=== PATIENT | male | born 1990 | race African-American/Black ===

== ENCOUNTER 2020-02-29 06:38 | Emergency (ER) | payer SELFPAY ==
[2020-02-29 07:33] LABS: #Eosinphils 0.1 thou/uL (0.0-0.7); #Monocytes 0.5 thou/uL (0.11-0.59); #Neutrophils 2.3 thou/uL (1.40-6.50); %Basophils 0.4 % (0.0-1.0); %Eosinophils 2.9 % (0.0-10.0); %Monocytes 12.4 % (0.0-10.0); %Neutrophils 58.3 % (42.0-75.0); Hemoglobin 11.2 g/dL (14.0-18.0); Mean Corpuscular HGB CONC 33.4 g/dL (32.0-36.0); Mean Corpuscular Hemoglobin 29.7 pg (27.0-31.0); Mean Corpuscular Volume 88.8 fL (78.0-98.0); Mean Platelet Volume 7.8 fL (7.4-10.4); Platelet Count 294 thou/uL (130-400); Red Blood Cell (RBC) Count 3.77 mill/uL (4.70-6.10)
[2020-02-29 07:40] LABS: Prothrombin Time 13.3 sec (12.0-14.7)
[2020-02-29 07:44] LABS: ALT (SGPT) Less than 7 U/L (8-55); AST (SGOT) 9 U/L (5-34); Albumin 3.5 g/dL (3.5-5.0); Alkaline Phosphatase 54 U/L (40-110); Anion Gap 9 mmol/L (10-20); BUN (Urea Nitrogen) 6 mg/dL (8.9-20.6); Bilirubin, Total Less than 0.2 mg/dL (0.2-1.2); CRP (Inflammatory) 2.22 mg/dL (= or < 0.5); Calc. Creatinine Clearance 0 mL/min (70-130); Calcium 8.7 mg/dL (7.8-10.44); Carbon Dioxide 25 mmol/L (22-29); Chloride 103 mmol/L (98-107); Estimated GFR-MDRD Greater than 90; Globulin 5.1 g/dL (2.4-3.5); Glucose 98 mg/dL (70-105); Lipase 20 U/L (8-78); Potassium 3.8 mmol/L (3.5-5.1); Protein, Total 8.6 g/dL (6.0-8.3); Sodium 133 mmol/L (136-145)
--- NOTE | 2020-02-29 08:13 | CT ---
CT of neck with contrast: 02/29/2020 HISTORY: 30-year-old HIV-positive male presents with right neck swelling FINDINGS: There is a large number of very enlarged right-sided cervical lymph nodes at levels 2, 3, 4, and 5. For example, one of the right level 2 cervical lymph nodes measures approximately 3.5 x 4 x 4.5 cm. A denoids, palatine tonsils, and lingual tonsil, are diffusely mildly enlarged. Larynx transverse dimension is mildly narrowed by the mass and right cervical lymphadenopathy, but no focal laryngeal t umor mass identified. No thyroid nodule identified. Parapharyngeal, senior cost analyst, and submandibular, and retropharyngeal, spaces, are unremarkable. IMPRESSION: 1. Massive multilevel right cervical lymphadenopathy. 2. In HIV positive individual, lymphoma is suspected. Other possibilities include metastatic right ce rvical lymphadenopathy due to occult squamous cell carcinoma. Infection is possible but less likely.
[2020-02-29] MEDS ORDERED: Iopamidol-370 76% 500 ML 1 ML ONE (13:39)
== END 2020-02-29 09:49 | disposition home or self-care (01) ==
LOC: ERS 06:38
DX: R59.0 Localized enlarged lymph nodes (principal); F17.210 Nicotine dependence, cigarettes, uncomplicated; Z21 Asymptomatic human immunodeficiency virus [HIV] infection status
CPT/HCPCS: 36415; 70491; 80053; 83690; 85025; 85610; 85652; 86140; Q9967

== ENCOUNTER 2020-03-04 07:34 | Outpatient (CLI) | payer BC, OTHER ==
[2020-03-04 16:54] LABS: Anion Gap 13 mmol/L (10-20); BUN (Urea Nitrogen) 7 mg/dL (8.9-20.6); Calc. Creatinine Clearance 0 mL/min (70-130); Carbon Dioxide 24 mmol/L (22-29); Chloride 104 mmol/L (98-107); Estimated GFR-MDRD Greater than 90; Glucose 87 mg/dL (70-105); Potassium 4.5 mmol/L (3.5-5.1); Sodium 136 mmol/L (136-145)
[2020-03-04 17:07] LABS: Band 4 % (5-11); Eosinophils 2 % (0-10); Hemoglobin 12.2 g/dL (14.0-18.0); Lymphocytes 26 % (21-51); MDiff Complete? YES; Mean Corpuscular HGB CONC 32.6 g/dL (32.0-36.0); Mean Platelet Volume 8.5 fL (7.4-10.4); Monocytes 16 % (0-10); Neutrophil 51 % (42-75); Platelet Count 288 thou/uL (130-400); Platelet Morphology Comment Appears Adequate; RBC Distribution Width 13.3 % (11.5-14.5); RBC Morphology Normal; Red Blood Cell (RBC) Count 4.21 mill/uL (4.70-6.10); White Blood Cell (WBC) Count 3.6 thou/uL (4.8-10.8)
[2020-03-05 13:13] LABS: SARS-CoV-2 MS2 Positive; SARS-CoV-2 N Gene Negative; SARS-CoV-2 S Gene Negative; SARS-CoV-2 orf1ab Negative
== END 2020-03-04 07:35 | disposition home or self-care (01) ==
LOC: LABBT 07:34
PROVIDERS: ATTEND Specialist
DX: Z01.812 Encounter for preprocedural laboratory examination (principal); Z11.59 Encounter for screening for other viral diseases; R59.0 Localized enlarged lymph nodes
CPT/HCPCS: 80048; 85025; 87635; U0003

== ENCOUNTER 2020-03-08 08:06 | Day surgery (SDC) | payer BC ==
[2020-03-03 10:54] VITALS: BMI 29.3
[2020-03-08] MEDS ORDERED: Acetaminophen 500 MG TAB ONE (08:46)
[2020-03-08] MEDS ORDERED: Ketorolac Tromethamine 30 MG/ML VIAL ONE (08:46)
[2020-03-08] MEDS ORDERED: Midazolam HCl 2 mg/2 ml Vial ONE (09:30)
[2020-03-08] MEDS ORDERED: Fentanyl 100 MCG/2 ML VIAL ONE (09:39)
[2020-03-08] MEDS ORDERED: Lidocaine 1% w/Epinephrine 1:100K 20 ML VIAL ONE (09:41)
[2020-03-08] MEDS ORDERED: Sodium Bicarbonate 2.5 MEQ/5 ML VIAL ONE (09:41)
[2020-03-08] MEDS ORDERED: Bupivacaine 0.25% HCL 30 ML VIAL ONE (09:41)
[2020-03-08] MEDS ORDERED: HYDROcodone/Acetaminophen 5/325 mg Tablet ONE (12:02)
[2020-03-08] MEDS ORDERED: Lidocaine 1% PF 5 ML VIAL ONE (14:26)
[2020-03-08] MEDS ORDERED: Ondansetron PF 4 MG/2 ML Vial ONE (14:26)
[2020-03-08] MEDS ORDERED: Dexamethasone 20 MG/5 ML VIAL ONE (14:26)
[2020-03-08] MEDS ORDERED: Glycopyrrolate 0.2 MG/ML 5 ML SYRINGE ONE (14:26)
[2020-03-08] MEDS ORDERED: PROPOFOL 200 MG/20 ML VIAL ONE (14:26)
[2020-03-08] MEDS ORDERED: Rocuronium Bromide 10 MG/ML (10ML VIAL) ONE (14:26)
--- NOTE | 2020-03-10 20:05 | OP ---
DATE OF PROCEDURE: 03/08/2020 PREOPERATIVE DIAGNOSIS: Extensive right anterior cervical lymphadenopathy. POSTOPERATIVE DIAGNOSIS: Extensive right anterior cervical lymphadenopathy. PROCEDURE PERFORMED: Right cervical deep lymph node excisional biopsy. ANESTHESIA: General endotracheal. INDICATIONS: The patient is a 30-year-old black male. He had presented recently with significant right neck swelling. Imaging studies show extensive right cervical lymphadenopathy. Interestingly, I cannot find any significant lymphadenopathy elsewhere. His oncologist has requested an excisional biopsy of one of these lymph nodes. DESCRIPTION OF OPERATION: Informed consent was obtained, the patient was taken to the operating room, where general endotracheal anesthesia was obtained with the patient in supine position. Neck was distracted and turned to the left. Neck was trimmed of hair and prepped with ChloraPrep and draped in sterile fashion. Local anesthetic was infiltrated along the intended incision line. Ultrasound was utilized to identify an appropriate lymph node. An oblique incision was created along the anterior border of the sternocleidomastoid. Dissection was carried through skin and subcutaneous tissue, and platysma in-line with the incision. Dissection was then carried down to the sternocleidomastoid and then along the anterior aspect of the SCM was reflected posteriorly. Dissection was carried medially down onto an obviously enlarged lymph node. Careful dissection was carried out along this in order to avoid peripheral injury. The overlying fascial structures were divided using electrocautery's were encountered to unroof the lymph node. A meticulous circumferential dissection was carried out. As each possible lymphatic was identified, it was divided using hemoclips. As the lymph node was mobilized, there was noted to be other markedly enlarged abnormal lymph nodes within the wound bed and the lymph node that was being dissected was carefully dissected away from these other lymph nodes. The operation was performed with essentially no blood loss. The lymph node was removed intact and passed off the field. It was quite large and was approximately 5 cm in length. The wound was inspected for meticulous hemostasis, which had been achieved. It was irrigated and then closed in layers using 3-0 Monocryl to approximate the sternocleidomastoid anteriorly and then a running suture of 3-0 Monocryl in order to close the platysma. Additional local anesthetic was infiltrated during closure. The skin edges were then approximated with a running subcuticular suture of 4-0 Monocryl and Dermabond was placed externally. There were no complications. The patient tolerated the procedure well and was taken to recovery room in stable condition. Job ID: [id number]
== END 2020-03-08 13:08 | disposition home or self-care (01) ==
LOC: SDC 08:06
PROVIDERS: ATTEND Specialist
PROC: 07D13ZX Extraction of Right Neck Lymphatic, Percutaneous Approach, Diagnostic (ICD-10-PCS; principal; 2020-03-08)
DX: C81.11 Nodular sclerosis Hodgkin lymphoma, lymph nodes of head, face, and neck (principal); F17.200 Nicotine dependence, unspecified, uncomplicated; F41.9 Anxiety disorder, unspecified
CPT/HCPCS: 88184; 88307; J0690; J1100; J1885; J2001; J2250; J2405; J2704; J3010; S0020

== ENCOUNTER 2020-05-31 18:57 | Inpatient (IN) | payer BC, OTHER ==
[~2020-05-31 18:57] MED LIST: Iopamidol-370 76% 500 ML 1 ML ONE
[2020-05-31] MEDS ORDERED: Aspirin 325 MG TAB ONE (19:41)
--- NOTE | 2020-05-31 19:52 | RAD ---
PORTABLE CHEST: 05/31/20 PROVIDED CLINICAL HISTORY: Chest pain and fever. FINDINGS: The cardiac and mediastinal silhouette is within normal limits. No focal consolidation, pleural fluid , or pneumothorax apparent. IMPRESSION: No evidence for an acute cardiopulmonary process. POS: HUAN
[2020-05-31 19:59] LABS: Hemoglobin 12.1 g/dL (14.0-18.0); Mean Corpuscular HGB CONC 33.6 g/dL (32.0-36.0); Mean Corpuscular Hemoglobin 29.1 pg (27.0-31.0); Mean Corpuscular Volume 86.5 fL (78.0-98.0); Mean Platelet Volume 8.5 fL (7.4-10.4); Platelet Count 219 thou/uL (130-400); RBC Distribution Width 14.9 % (11.5-14.5); Red Blood Cell (RBC) Count 4.16 mill/uL (4.70-6.10); White Blood Cell (WBC) Count 4.5 thou/uL (4.8-10.8)
[2020-05-31 20:16] LABS: Band 4 % (5-11); Eosinophils 2 % (0-10); Lymphocytes 22 % (21-51); MDiff Complete? YES; Monocytes 15 % (0-10); Neutrophil 57 % (42-75); Platelet Morphology Comment Appears Adequate; RBC Morphology Normal
[2020-05-31 20:16] LABS: ALT (SGPT) 8 U/L (8-55); AST (SGOT) 13 U/L (5-34); Albumin 3.7 g/dL (3.5-5.0); Alkaline Phosphatase 62 U/L (40-110); Anion Gap 15 mmol/L (10-20); BUN (Urea Nitrogen) 6 mg/dL (8.9-20.6); Bilirubin, Total 0.4 mg/dL (0.2-1.2); Calc. Creatinine Clearance 0 mL/min (70-130); Calcium 8.9 mg/dL (7.8-10.44); Carbon Dioxide 22 mmol/L (22-29); Chloride 100 mmol/L (98-107); Estimated GFR-MDRD Greater than 90; Globulin 5.4 g/dL (2.4-3.5); Glucose 94 mg/dL (70-105); Lipase 9 U/L (8-78); Potassium 3.7 mmol/L (3.5-5.1); Protein, Total 9.1 g/dL (6.0-8.3); Sodium 133 mmol/L (136-145)
[2020-05-31] MEDS ORDERED: cefTRIAXone\\ROCEPHIN 2 GM VIAL ONE (21:06)
[2020-05-31] MEDS ORDERED: Sulfameth/Trimethoprim DS 800-160mg TAB ONE (21:06)
--- NOTE | 2020-05-31 21:44 | CT ---
CT PULMONARY ANIOGRAM WITH IV CONTRAST AND 3D MIP RECONSTRUCTIONS: 05/31/20 PROVIDED CLINICAL HISTORY: Chest pain, HIV positive, history of lymphoma. FINDINGS: No comparisons. The heart, pericardium and great vessels appear unremarkable. There is no evidence for central or seg mental pulmonary embolus. Prominent axillary, hilar, and mediastinal lymph node enlargement is demonstrated. The lungs are free of significant opacity. The airway appears patent and of normal caliber. There is no pleural fluid or pneumothorax apparent. The visualized portions of the upper abdomen demonstrate no significant abnormality. Changes of prior cholecystectomy are seen. The osseous structures demonstrate no concerning lytic or blastic lesions. IMPRESSION: 1. No evidence for central or segmental pulmonary embolus. 2. Axillary, mediastinal and hilar lymph node enlargement, compatible with the provided clinical history of lymphoma. POS: HUAN
[2020-05-31] MEDS ORDERED: Azithromycin 500 MG VIAL ONE (21:52)
[2020-05-31] MEDS ORDERED: Ondansetron PF 4 MG/2 ML Vial ONE (22:23)
[2020-05-31 22:30] LABS: SARS-CoV-2 NAA Rapid Test Not Detected (NotDetected)
[2020-06-01 00:47] LABS: Troponin I Less than 0.010 ng/mL (< 0.028)
[2020-06-01] MEDS ORDERED: Promethazine HCl 12.5 MG in Sodium Chloride 0.9% 50 ML IVPB PRN (00:59)
[2020-06-01] MEDS ORDERED: Labetalol HCl 100 MG/20 ML VIAL SLOW IVP PRN (00:59)
[2020-06-01] MEDS ORDERED: Acetaminophen 325 MG TAB PO PRN (00:59)
[2020-06-01] MEDS ORDERED: hydrALAZINE 20 MG/ML VIAL SLOW IVP PRN (00:59)
[2020-06-01] MEDS ORDERED: Ondansetron PF 4 MG/2 ML Vial IVP PRN (00:59)
[2020-06-01] MEDS ORDERED: Guaifenesin DM 100-10/5 ML UDCUP PO PRN (00:59)
[2020-06-01] MEDS ORDERED: cloNIDine 0.1 MG TAB PO PRN (00:59)
[2020-06-01] MEDS ORDERED: Electrolyte Replacement Protoc 1 EACH EACH FS SCH (01:00)
--- NOTE | 2020-06-01 01:13 | PDOC.HHP ---
Hospitalist HPI - History of Present Illness Fever, chest pain History of Present Illness: Patient is a 30 year old male with PMH HIV, hodgkins lymphoma who presents to ED for chest pain, fatigue, malaise, fever. 3 days ago patient developed lost energy, chest pain with inspiration that is relieved by laying on side and laying down, 8/10 aching and pressure like.. He also had a fever as high as 102.6. He reports chills. He has history of HIV, been off of medications for the last 5 years, also has nonhodgkins lymphoma, has had basically no followup due to lapse of funding, does not see ID or oncology provider. Other symptoms include cough, the chest pain is substernal radiating to back, his partner r ecently had a fever as well. In ED, CXR unremarkable, covid test negative. CTA chest with findings of lymphadenopathy consistent with history of lymphoma, no PE. Hospitalist ROS - Review of Systems Constitutional: reports: fever, chills, sweats, weakness, malaise Eyes: denies: pain, vision change, conjunctivae inflammation, eyelid inflammation, redness, other ENT: denies: ear pain, ear discharge, nose pain, nose discharge, nose congestion, mouth pain, mouth swelling, throat pain, throat swelling, other Respiratory: reports: cough, pleuritic pain Cardiovascular: reports: chest pain. denies: palpitations, orthopnea, paroxysmal noc. dyspnea, edema, light headedness, other Gastrointestinal: denies: nausea, vomiting, abdominal pain, diarrhea, constipation, melena, hematochezia, other Genitourinary: denies: dysuria, frequency, incontinence, hematuria, retention, other Musculoskeletal: denies: neck pain, shoulder pain, arm pain, back pain, hand pain, leg pain, foot pain, other Skin: denies: rash, lesions, ludivina, bruising, other Neurological: denies: weakness, numbness, incoordination, change in speech, confusion, seizures, other All other systems reviewed; all pertinent +/- noted in HPI/Subj - Medication Medications: noncompliant Hospitalist History - Past Medical History Other Medical History: HIV hodgkins lymphoma - Past Surgical History Past Surgical History: reports: Cholecystectomy - Family History Family History: reports: no pertinent history - Social History Smoking Status: Current every day smoker Drugs: reports: marijuana - Exam General Appearance: NAD, awake alert Eye: PERRL, anicteric sclera ENT: normocephalic atraumatic, no oropharyngeal lesions, moist mucosa Neck: supple, symmetric, no JVD, no thyromegaly, no lymphadenopathy, no carotid bruit Heart: RRR, no murmur, no gallops, no rubs, normal peripheral pulses Respiratory: CTAB, no wheezes, no rales, no ronchi, normal chest expansion, no tachypnea, normal percussion Gastrointestinal: soft, non-tender, non-distended, normal bowel sounds, no palpable masses, no hepatomegaly, no splenomegaly, no bruit Extremities: no cyanosis, no clubbing, no edema Skin: normal turgor, no lesions, no rashes Neurological: cranial nerve grossly intact, normal sensation to touch, no weakness, no focal deficits, no new deficit Musculoskeletal: normal tone, normal strength, no muscle wasting Psychiatric: normal affect, normal behavior, A&O x 3 Hospitalist Results - Labs Result Diagrams: 06/01/20 03:13 06/01/20 03:13 Lab results: WBC 4.5 thou/uL (4.8-10.8) L 05/31/20 19:48 Hgb 12.1 g/dL (14.0-18.0) L 05/31/20 19:48 Hct 36.0 % (42.0-52.0) L 05/31/20 19:48 MCV 86.5 fL (78.0-98.0) 05/31/20 19:48 Plt Count 219 thou/uL (130-400) 05/31/20 19:48 Band Neuts % (Manual) 4 % (5-11) L 05/31/20 19:48 Sodium 133 mmol/L (136-145) L 05/31/20 19:49 Potassium 3.7 mmol/L (3.5-5.1) 05/31/20 19:49 Chloride 100 mmol/L (98-107) 05/31/20 19:49 Carbon Dioxide 22 mmol/L (22-29) 05/31/20 19:49 BUN 6 mg/dL (8.9-20.6) L 05/31/20 19:49 Creatinine 0.76 mg/dL (0.7-1.3) 05/31/20 19:49 Glucose 94 mg/dL (70-105) 05/31/20 19:49 Lactic Acid 0.8 mmol/L (0.5-2.2) 05/31/20 22:10 Calcium 8.9 mg/dL (7.8-10.44) 05/31/20 19:49 Total Bilirubin 0.4 mg/dL (0.2-1.2) 05/31/20 19:49 AST 13 U/L (5-34) 05/31/20 19:49 ALT 8 U/L (8-55) 05/31/20 19:49 Alkaline Phosphatase 62 U/L (40-110) 05/31/20 19:49 Troponin I Less than 0.010 ng/mL (< 0.028) 06/01/20 00:16 Serum Total Protein 9.1 g/dL (6.0-8.3) H 05/31/20 19:49 Albumin 3.7 g/dL (3.5-5.0) 05/31/20 19:49 Lipase 9 U/L (8-78) 05/31/20 19:49 Additional comment: VITAL SIGNS SatJun 01, 2020 00:09 AROLDO Moreno Julia BP: 112/72 Pulse: 92 Resp: 18 Temp: 99.0 (Oral) Pain: 4 O2 sat: 97 on (Room Air) Time: 06/01/2020 00:09. XR Chest 1 View Portable Observe DT: SatMay 31, 2020 19:10 CXRP PORTABLE CHEST: 05/31/20 PROVIDED CLINICAL HISTORY: Chest pain and fever. FINDINGS: The cardiac and mediastinal silhouette is within normal limits. No focal consolidation, pleural fluid , or pneumothorax apparent. IMPRESSION: No evidence for an acute cardiopulmonary process. Ed labs/imaging reports/ED documents reviewed. - EKG Interpretation EKG: per ED read, EKG without evidence for ischemia Hospitalist H&P A/P - Plan Plan: Patient is a 30 year old male with PMH HIV, hodgkins lymphoma who presents to ED for chest pain, fatigue, malaise, fever. # HIV infection - off of medications for 5 years # fever, chest pain - positional, 3 days ago patient developed lost energy, chest pain with inspiration that is relieved by laying on side and laying down, 8/10 aching and pressure like. He also had a fever as high as 102.6. He reports chills. He has history of HIV, been off of medications for the last 5 years, also has nonhodgkins lymphoma, has had basically no followup due to lapse of funding, does not see ID or oncology provider. Other symptoms include cough, the chest pain is substernal radiating to back, his partner recently had a fever as well. In ED, CXR unremarkable, covid test negative. CTA chest with findings of lymphadenopathy consistent with history of lymphoma, no PE. \ - admit to floor - consult oncology/ID - send for viral load/CD4 - start azithromycin/ceftriaxone - PCP treatment dose bactrim started empirically DVT/GI ppx
[2020-06-01 01:19] VITALS: BMI 29.7
[2020-06-01 03:56] LABS: Anion Gap 12 mmol/L (10-20); BUN (Urea Nitrogen) 7 mg/dL (8.9-20.6); Calc. Creatinine Clearance 193 mL/min (70-130); Calcium 8.5 mg/dL (7.8-10.44); Carbon Dioxide 23 mmol/L (22-29); Chloride 102 mmol/L (98-107); Estimated GFR-MDRD Greater than 90; Glucose 111 mg/dL (70-105); Magnesium 1.9 mg/dL (1.6-2.6); Potassium 3.9 mmol/L (3.5-5.1); Sodium 133 mmol/L (136-145)
[2020-06-01 04:00] LABS: Troponin I Less than 0.010 ng/mL (< 0.028)
[2020-06-01] MEDS ORDERED: Magnesium 2 GM/50 ML 2 GM in Premix Bag 1 BAG IVPB SCH (04:30)
[2020-06-01 05:05] LABS: Band 6 % (5-11); Hemoglobin 10.6 g/dL (14.0-18.0); Hypochromia SLIGHT = 6-15 cells (100X) (0-5/hpf); Lymphocytes 19 % (21-51); MDiff Complete? YES; Mean Corpuscular HGB CONC 31.7 g/dL (32.0-36.0); Mean Corpuscular Hemoglobin 27.5 pg (27.0-31.0); Mean Corpuscular Volume 86.8 fL (78.0-98.0); Mean Platelet Volume 8.7 fL (7.4-10.4); Monocytes 22 % (0-10); Neutrophil 53 % (42-75); Platelet Count 217 thou/uL (130-400); Platelet Morphology Comment Appears Adequate; RBC Distribution Width 14.8 % (11.5-14.5); Red Blood Cell (RBC) Count 3.85 mill/uL (4.70-6.10); White Blood Cell (WBC) Count 3.9 thou/uL (4.8-10.8)
[2020-06-01] MEDS ORDERED: Prevnar 13-Val Conj/PF 0.5 ML SYRINGE IM ONE (09:00)
[2020-06-01] MEDS: Sulfameth/Trimethoprim DS 800-160mg TAB PO SCH ×3 (09:07→20:00)
[2020-06-01] MEDS: Polyethylene Glycol 3350 17 GM Packet PO SCH (09:07)
[2020-06-01] MEDS: Famotidine 20 MG TAB PO SCH ×2 (09:07→20:00)
[2020-06-01] MEDS: HYDROcodone/Acetaminophen 5/325 mg Tablet PO PRN ×2 (09:16→16:29)
--- NOTE | 2020-06-01 19:08 | CON ---
DATE OF CONSULTATION: 06/01/2020 REASON FOR CONSULT: HIV infection with Hodgkin's lymphoma. HISTORY OF PRESENT ILLNESS: A 30-year-old who has HIV seropositive status since 2009. He was not treated until 2014. According to him, his doctor decided against treatment and then in , he was prescribed Stribild. Apparently after two months, the doctor decided to stop it, but apparently was not working and he was not given any alternate. She has moved over to the area and was diagnosed with Hodgkin lymphoma recently. Dr. Omalley was evaluating patient for treatment and some issues with insurance and at this time, he comes through the emergency room because of anterior chest pain radiating to the left side of the chest, associated with fever of 102. No headaches, visual symptoms, sore throat, odynophagia, or dysphagia. No cough. Apparently, his partner had a fever recently, but this has improved. No abdominal pain or diarrhea. No genitourinary symptoms. No joint symptoms. PAST MEDICAL HISTORY: HIV infection, CD4 cell count was above 500 and the latest one in March I believe was 426, is not on treatment since 2014. He also has Hodgkin's disease diagnosed recently, not yet treated. PAST SURGICAL HISTORY: Includes laparoscopic cholecystectomy and lymph node biopsy. SOCIAL HISTORY: He uses marijuana intermittently. Smokes two cigarettes daily. Drinks occasionally. He used to work for a company, but was laid off. ALLERGIES: NONE. CURRENT MEDICATIONS: 1. DuoNeb. 2. Azithromycin. 3. Rocephin. 4. Lovenox. 5. Robitussin. 6. Zofran. 7. MiraLAX. 8. Bactrim. FAMILY HISTORY: Noncontributory. PHYSICAL EXAMINATION: VITAL SIGNS: T-max 99, BP 113/58, temperature 98.5, heart rate 83, respiratory rate 16, and O2 saturation 97. SKIN: Within normal limits. NECK: Patient has a large right-sided neck lymphadenopathy, which corresponds to his Hodgkin's disease. Neck is supple. HEENT: Ocular movements conjugate. Oral cavity normal. Teeth in good shape. LUNGS: Symmetric. Clear breath sounds. HEART: S1 and S2. Regular rate. No S3 or S4. ABDOMEN: Soft, nondistended, and nontender. No ascites. No bladder distention. : No genital abnormalities. EXTREMITIES: No joint inflammatory activity. Moves extremities equally. LABORATORY: White cell count 4.5 and 3.9, hemoglobin 12.1, platelets 217 with a normal differential. Monocytes are 22%. Total lymphocyte count is around 800. LDH 236. Albumin 3.7. Liver profile normal. Creatinine 0.76. COVID was negative in February and negative now in May. There is a pathology report from February with nodular sclerosis, classical Hodgkin's lymphoma. IMAGING: Chest CTA with no pulmonary embolism, axillary mediastinal hilar lymph node enlargement, and soft tissue neck CT from February with massive right cervical lymphadenopathy. ASSESSMENT: Human immunodeficiency virus infection with short-lived treatment with anti-retroviral therapy in 2014, presumably due to virologic failure, but that is not clear. He currently has a CD4 last checked in March, which was 436, and he is admitted with chest pain, which is probably secondary to the lymphoma I would say is the more likely scenario. I think he does not need any antimicrobial therapy at this point in time. Troponins are wnl. The lymphoma is the more likely reason for the fever. We will go ahead and submit the genotype in preparation for resumption of antiretroviral therapy in the outpatient setting. When the patient gets out of the hospital, we will see him in the clinic and establish treatment which is important since he may be receiving chemotherapy shortly. Job ID: [id number] MTDD
--- NOTE | 2020-06-01 19:41 | CON ---
DATE OF CONSULTATION: REASON FOR CONSULTATION: Hodgkin lymphoma. HISTORY OF PRESENT ILLNESS: Mr. Pepper is a 30-year-old gentleman, who is HIV positive, who was diagnosed with nodular sclerosis, classical Hodgkin lymphoma in February of 2020. He presented with a 7 to 8 cm right-sided mass at that time. He underwent a right cervical lymph node biopsy, which confirmed Hodgkin lymphoma. He had MediPort placed. He was to have further imaging studies and wish to follow up with Dr. Lopez as he had not had any treatment for his HIV since 2014. He unfortunately lost his insurance and did not follow up with us. He was last seen on March 10, 2020. He presented to the emergency room yesterday with 3-day history of fever, chest pain, and general malaise. Temperature was as high as 102.6. He underwent a CT angio of the chest, which showed no evidence of pulmonary emboli except emboli. It did show axillary mediastinal and hilar lymph node enlargement compatible with his history of lymphoma. On exam, the patient has a large 10+ cm right neck mass. He has supraclavicular lymphadenopathy. He admits to having night sweats and general malaise. Denies any chest pain at this time. PAST MEDICAL HISTORY: 1. HIV positive, 2009. 2. Hodgkin lymphoma diagnosed in February 2020. PAST SURGICAL HISTORY: 1. Eye surgery in 1993. 2. Cholecystectomy in 2018. ALLERGIES: NO KNOWN DRUG ALLERGIES. HOME MEDICATIONS: None. FAMILY HISTORY: Father had lung cancer. SOCIAL HISTORY: Lives with his significant other. Current everyday smoker. History of marijuana use. No alcohol. REVIEW OF SYSTEMS: A 10-point review of systems is negative except for noted in HPI. PHYSICAL EXAMINATION: VITAL SIGNS: Temperature is 98.5, pulse is 83, respiratory rate is 16, blood pressure is 113/58. He is 97% on room air. GENERAL: Well-developed, well-nourished male, in no acute distress. HEENT: Normocephalic, atraumatic. Pupils are equal and reactive to light. NECK: He has large conglomerate of right cervical lymph nodes approximately 10 to 12 cm. He has supraclavicular lymphadenopathy. LUNGS: Clear to auscultation. CV: Regular rate and rhythm. ABDOMEN: Soft and nontender. Bowel sounds are positive. EXTREMITIES: There is no clubbing or cyanosis. SKIN: No rash. HEMATOLOGICAL: No petechiae or purpura. NEUROLOGICAL: Nonfocal. PERTINENT LABORATORY DATA AND X-RAYS: Current WBCs are 3.9, hemoglobin 10.6, hematocrit 33.5, platelet count 217,050 3% neutrophils, 6% bands, 19% lymphocytes, and 22% monocytes. Sodium is 133, potassium 3.9, chloride 102, CO2 is 23, BUN is 7, creatinine 0.78, lactic acid 0.8, calcium 8.5, magnesium 1.9, bilirubin 0.4, AST is 13, ALT is 8, alkaline phosphatase is 62. Serum total protein is 9.1, albumin 3.7, globulin 5.4, lipase 9, LDH is 236. Troponin negative. COVID-19 PCR negative. Radiology per history of present illness. ASSESSMENT: 1. Classical Hodgkin lymphoma. 2. HIV positive. DISCUSSION: The patient unfortunately did not follow up for treatment of his HIV nor of his Hodgkin lymphoma. He now has B type symptoms including fever and night sweats. Dr. Lopez has been consulted and has seen the patient and is running his blood test to resume medication. The patient requires his HIV to be controlled prior to starting chemotherapy. He will need an outpatient PET scan as well as a transesophageal echo. Needs to see a financial counselor see the patient for financial assistance. He will follow up in the clinic to see Dr. Omalley. Thank you for the consult. Job ID: [id number] MTDD
[2020-06-01 20:25] LABS: Troponin I Less than 0.010 ng/mL (< 0.028)
[2020-06-01] MEDS ORDERED: Azithromycin 500 MG in Syringe 0 ML IVPB SCH (21:00)
[2020-06-01] MEDS ORDERED: Enoxaparin Sodium 40 MG/0.4 ML SYRINGE SC SCH (21:00)
[2020-06-01] MEDS ORDERED: cefTRIAXone\\ROCEPHIN 1 GM in Sodium Chloride 0.9% 100 ML IVPB SCH (21:00)
[2020-06-01] MEDS ORDERED: Azithromycin 500 MG in Sodium Chloride 0.9% 250 ML 250 ML IVPB SCH (23:00)
[2020-06-02] MEDS: HYDROcodone/Acetaminophen 5/325 mg Tablet PO PRN (04:12)
[2020-06-02 05:15] LABS: Anion Gap 13 mmol/L (10-20); BUN (Urea Nitrogen) 7 mg/dL (8.9-20.6); Calc. Creatinine Clearance 164 mL/min (70-130); Calcium 8.6 mg/dL (7.8-10.44); Carbon Dioxide 24 mmol/L (22-29); Chloride 101 mmol/L (98-107); Estimated GFR-MDRD Greater than 90; Glucose 92 mg/dL (70-105); Magnesium 2.2 mg/dL (1.6-2.6); Potassium 3.7 mmol/L (3.5-5.1); Sodium 134 mmol/L (136-145); Uric Acid 3.5 mg/dL (3.5-7.2)
[2020-06-02 05:28] LABS: Band 10 % (5-11); Eosinophils 1 % (0-10); Hemoglobin 11.2 g/dL (14.0-18.0); Lymphocytes 24 % (21-51); MDiff Complete? YES; Mean Corpuscular HGB CONC 32.2 g/dL (32.0-36.0); Mean Corpuscular Hemoglobin 28.5 pg (27.0-31.0); Mean Corpuscular Volume 88.7 fL (78.0-98.0); Mean Platelet Volume 7.9 fL (7.4-10.4); Monocytes 10 % (0-10); Neutrophil 55 % (42-75); Platelet Count 225 thou/uL (130-400); Platelet Morphology Comment Appears Adequate; RBC Distribution Width 14.8 % (11.5-14.5); Red Blood Cell (RBC) Count 3.93 mill/uL (4.70-6.10); White Blood Cell (WBC) Count 4.2 thou/uL (4.8-10.8)
[2020-06-02] MEDS: Sulfameth/Trimethoprim DS 800-160mg TAB PO SCH (08:16)
[2020-06-02] MEDS: Polyethylene Glycol 3350 17 GM Packet PO SCH (08:16)
[2020-06-02] MEDS: Famotidine 20 MG TAB PO SCH (08:16)
[2020-06-02 11:28] VITALS: BP 134/79; TEMP 98.1
[2020-06-02 16:38] LABS: %CD4 (Helper/Inducer) 27.5 % (30.8-58.5); Absolute CD4 248 /uL (359-1519); Lymphocytes/Gated Cell Count 0.9 x10E3/uL (0.7-3.1); Total Lymphocyte 23 % (Not Estab.); WBC Total Count 3.9 x10E3/uL (3.4-10.8)
--- NOTE | 2020-06-03 05:26 | DIS ---
DATE OF ADMISSION: 05/31/2020 DATE OF DISCHARGE: 06/02/2020 DISCHARGE DIAGNOSES: 1. Hodgkin lymphoma, untreated. 2. Chest pain secondarily to #1. 3. Human immunodeficiency viral infection without current treatment. 4. Hyponatremia, mild. 5. Chronic normocytic anemia. CONSULTATIONS: 1. Dr. Lopez with Infectious Disease Service. 2. Medical Oncology Service. PERTINENT LABORATORY AND X-RAY FINDINGS: Sodium ranged between 133 to 134. Troponin I negative x3. Lactate dehydrogenase 236, lipase 9. LFTs within normal limits. Lactic acid level 0.8. CBC showed a hemoglobin ranging between 10.6 to 12.1. COVID-19 PCR not detected, 05/31/2020. Blood cultures x2 dated 05/31/2020, showed no growth at 48 hours. Portable chest x-ray dated 05/31/2020, showed no acute infiltrates. CT angiogram of the chest dated 05/31/2020, showed no evidence for pulmonary embolus. Axillary mediastinal and hilar lymphadenopathy compatible with history of lymphoma. HOSPITAL COURSE: The patient was admitted to the telemetry unit after initially presenting with generalized weakness, fatigue, chest pain, and fever. The patient underwent evaluation including plain radiographic chest imaging showing no acute infiltrates. CT angiogram of the chest was performed showing multiple areas of lymphadenopathy in the context of Hodgkin lymphoma without current treatment. Metabolic screening was essentially unremarkable with COVID-19 PCR not detected. The patient was initially placed on Bactrim DS for prophylactic and empiric treatment for potential PCP pneumonia. However, after consultation with Infectious Disease Service, this was not recommended to continue. The patient's presentation consistent with Hodgkin lymphoma with fever and lymphadenopathy. Current recommendations are to initiate anti-retroviral therapy for the HIV to obtain optimal control prior to initiation of chemotherapy for the lymphoma. Overall, the patient did remain clinically stable during the hospital course and afebrile throughout the hospital stay. I have discussed followup instructions with the patient at the time of discharge. DISCHARGE MEDICATIONS: Reviewed and negative. FOLLOWUP: The patient may follow up with Dr. Jesus Manuel Lopez to establish anti-retroviral therapy. The patient may follow up with Sharlene Mariee with Medical Oncology Service. CONDITION ON DISCHARGE: Stable. ACTIVITY: Ad-zi. DIET: Regular. CODE STATUS: Full. DISPOSITION: To home 06/02/2020. Job ID: [id number]
[2020-06-03 12:16] LABS: LOG10 HIV-1 RNA 4.057 (.)
--- NOTE | 2020-06-08 14:15 | PQF ---
CLINICAL DOCUMENTATION CLARIFICATION FORM: Dear : TELLY PIERCE DO Date / Time: 06/08/2020 Please exercise your independent, professional judgment in responding to the clarification form. Clinical indicators are provided on the bottom of this form for your review Please check appropriate box(es): [ x ] Hodgkin Lymphoma related to HIV [ ]Hodgkin Lymphoma not related to HIV [ ] Other diagnosis (Please specify if any) [ ] Unable to determine Physician Signature: Date/Time: For continuity of documentation, please document condition throughout progress notes and discharge summary. Thank You To be completed by CDI/Coding staff for physician review: Present Clinical Indicators - Signs / Symptoms / Labs Results and Location in Medical Record [x ] based on his CBC today & ALC he does meet criteria for AIDS. ED provider report on 05/31 [ x ] HIV infection-off of medcations for 5 yrs H&P on 06/01 [ x ] He has mediastinal lymph nodes likely c/w his known HL, given the patients symptoms & the fact that he likely has AIDS now & worsening cancer ED provider report on 05/31 [ x ] PMH: HIV infection, CD4 cell count was above 500 & the latest one in March I believe was 426, is not on treatment since 2014. He also has Hodgkin's disease recently diagnosed Consult on 06/01 [ x ] HIV positive.He now has B type symptoms including fever & night sweats. .The patient requires his HIV to be controlled prior to starting chemo. Consult on 06/01 [ x ] Hodgkin Lymphoma, untreated , HIV infection w/o current treatment Discharge summary on 06/03 Present Risk Factors Results and Location in Medical Record [ x ] PMH: HIV Consult on 06/01 [ x ] [ ] [ ] Present Treatments Results and Location in Medical Record [ x] Reason for consult: Hodgkin Lymphoma Consult on 06/01 [ x ] Current recommendations are to initiate anti-retroviral therapy for the HIV to obtain optimal control prior to initiation of chemo for lymphoma Discharge summary on 06/03 [ ] [ ] CDS/Violin Tutor Signature: AAS Phone #: Date/Time: 06/08/2020 This is a permanent part of the Medical Record [facility]
== END 2020-06-02 13:12 | disposition home or self-care (01) | DRG 977 ==
LOC: ERS 18:57 → 2NO 23:58
PROVIDERS: ADMIT Internal Medicine; ATTEND Internal Medicine
DX: B20 Human immunodeficiency virus [HIV] disease (principal); C81.90 Hodgkin lymphoma, unspecified, unspecified site; E87.1 Hypo-osmolality and hyponatremia; G89.3 Neoplasm related pain (acute) (chronic); R07.9 Chest pain, unspecified; F17.210 Nicotine dependence, cigarettes, uncomplicated; Z20.828 Contact with and (suspected) exposure to other viral communicable diseases; D64.9 Anemia, unspecified; Z90.49 Acquired absence of other specified parts of digestive tract
CPT/HCPCS: 36415; 36600; 71045; 71275; 80048; 80053; 83605; 83615; 83690; 83735; 84484; 84550; 85025; 85048; 86361; 87040; 87070; 87205; 87536; 90471; 90670; 93005; 96365; 96367; 96375; G0009; J0456; J0696; J1650; J2405; J3475; Q9967; U0002

== ENCOUNTER 2021-01-03 02:16 | Inpatient (IN) | payer BC, SELFPAY ==
[2021-01-03] MEDS ORDERED: Acetaminophen 325 MG TAB ONE (03:00)
[2021-01-03 03:16] LABS: Hemoglobin 11.1 g/dL (14.0-18.0); Mean Corpuscular HGB CONC 33.5 g/dL (32.0-36.0); Mean Corpuscular Hemoglobin 28.7 pg (27.0-31.0); Mean Corpuscular Volume 85.8 fL (78.0-98.0); Mean Platelet Volume 9.6 fL (7.4-10.4); Platelet Count 157 thou/uL (130-400); RBC Distribution Width 14.7 % (11.5-14.5); Red Blood Cell (RBC) Count 3.87 mill/uL (4.70-6.10); White Blood Cell (WBC) Count 5.3 thou/uL (4.8-10.8)
[2021-01-03 03:33] LABS: Band 7 % (5-11); Lymphocytes 18 % (21-51); MDiff Complete? YES; Monocytes 22 % (0-10); Neutrophil 52 % (42-75); Reactive Lymphocytes 1 % (0-10)
[2021-01-03 03:34] LABS: Bacteria/HPF None Seen HPF (None Seen); Bilirubin Negative (Negative); Blood, Urine 1+ (Negative); Clarity Clear (Clear); Glucose, Urine (Dipstick) Normal (Negative); Ketone, Urine Negative (Negative); Leukocyte 25 Leu/uL (Negative); Nitrite Negative (Negative); Protein, Urine (Dipstick) 30 mg/dL (Neg-Trace); Specific Gravity, Urine 1.026 (1.002-1.036); Squamous Epithelial 0-3 HPF (0-3); Urobilinogen Greater than 12 mg/dL (Less than 2); WBC/HPF 0-3 HPF (0-3); pH, Urine 6.5 (5.0-9.0)
[2021-01-03 03:42] LABS: ALT (SGPT) 10 U/L (8-55); AST (SGOT) 17 U/L (5-34); Albumin 3.4 g/dL (3.5-5.0); Alkaline Phosphatase 63 U/L (40-110); Anion Gap 13 mmol/L (10-20); BUN (Urea Nitrogen) 5 mg/dL (8.9-20.6); Bilirubin, Total 0.6 mg/dL (0.2-1.2); Calc. Creatinine Clearance 0 mL/min (70-130); Calcium 8.6 mg/dL (7.8-10.44); Carbon Dioxide 23 mmol/L (22-29); Globulin 5.4 g/dL (2.4-3.5); Glucose 115 mg/dL (70-105); Potassium 3.9 mmol/L (3.5-5.1); Protein, Total 8.8 g/dL (6.0-8.3); Sodium 130 mmol/L (136-145)
[2021-01-03 03:45] LABS: Chloride 98 mmol/L (98-107)
[2021-01-03 04:31] LABS: SARS-CoV-2 NAA Rapid Test Not Detected (NotDetected)
[2021-01-03] MEDS ORDERED: Sulfameth/Trimethoprim DS 800-160mg TAB ONE (04:35)
[2021-01-03] MEDS ORDERED: Vancomycin 1 GM/200 ML BAG ONE (04:35)
[2021-01-03] MEDS ORDERED: Cefepime 2 GM VIAL ONE (04:35)
[2021-01-03] MEDS ORDERED: Ondansetron PF 4 MG/2 ML Vial IVP PRN (05:52)
[2021-01-03] MEDS ORDERED: Guaifenesin DM 100-10/5 ML UDCUP PO PRN (05:52)
[2021-01-03] MEDS ORDERED: hydrALAZINE 20 MG/ML VIAL SLOW IVP PRN (05:54)
[2021-01-03] MEDS ORDERED: Vancomycin 1 GM in Premix Bag 1 BAG IVPB SCH (06:00)
[2021-01-03] MEDS ORDERED: cefTRIAXone\\ROCEPHIN 1 GM VIAL ONE (06:22)
[2021-01-03] MEDS: Sodium Chloride 0.9% 1,000 ML IV SCH ×2 (06:32→17:17)
[2021-01-03] MEDS: cefTRIAXone\\ROCEPHIN 1 GM in Sodium Chloride 0.9% 100 ML IVPB SCH (06:32)
[2021-01-03 06:33] VITALS: BMI 33.9
[2021-01-03 09:12] LABS: Anion Gap 16 mmol/L (10-20); BUN (Urea Nitrogen) 5 mg/dL (8.9-20.6); Calc. Creatinine Clearance 223 mL/min (70-130); Calcium 8.3 mg/dL (7.8-10.44); Carbon Dioxide 20 mmol/L (22-29); Chloride 100 mmol/L (98-107); Glucose 102 mg/dL (70-105); Potassium 3.8 mmol/L (3.5-5.1); Sodium 132 mmol/L (136-145)
[2021-01-03] MEDS ORDERED: Famotidine 20 MG TAB ONE (09:16)
[2021-01-03] MEDS ORDERED: HYDROcodone/Acetaminophen 7.5/325 mg Tablet ONE (09:16)
[2021-01-03] MEDS: Famotidine 20 MG TAB PO SCH ×2 (09:21→20:40)
[2021-01-03] MEDS: HYDROcodone/Acetaminophen 7.5/325 mg Tablet PO PRN ×2 (09:21→17:30)
[2021-01-03] MEDS ORDERED: Iopamidol-370 76% 500 ML 1 ML ONE (10:28)
[2021-01-03] MEDS ORDERED: Bisacodyl 10 MG SUPP PR SCH (15:15)
[2021-01-03] MEDS ORDERED: Polyethylene Glycol 3350 17 GM Packet PO SCH (15:15)
[2021-01-03] MEDS ORDERED: Sodium Bicarbonate Tab 325 MG TAB PO SCH (15:30)
[2021-01-03] MEDS: VANCOMYCIN 2 GRAM/400 ML BAG 2 GM in Premix Bag 1 BAG IVPB SCH (17:16)
[2021-01-03] MEDS: Enoxaparin Sodium 40 MG/0.4 ML SYRINGE SC SCH (17:21)
[2021-01-03] MEDS: Sodium Bicarbonate Tab 325 MG TAB PO SCH (20:40)
[2021-01-04] MEDS: VANCOMYCIN 2 GRAM/400 ML BAG 2 GM in Premix Bag 1 BAG IVPB SCH ×3 (00:14→10:44)
[2021-01-04] MEDS: cefTRIAXone\\ROCEPHIN 1 GM in Sodium Chloride 0.9% 100 ML IVPB SCH (05:43)
[2021-01-04 06:53] LABS: Hemoglobin 10.3 g/dL (14.0-18.0); Mean Corpuscular HGB CONC 32.5 g/dL (32.0-36.0); Mean Corpuscular Hemoglobin 28.1 pg (27.0-31.0); Mean Corpuscular Volume 86.4 fL (78.0-98.0); Mean Platelet Volume 9.2 fL (7.4-10.4); Platelet Count 165 thou/uL (130-400); RBC Distribution Width 14.8 % (11.5-14.5); Red Blood Cell (RBC) Count 3.68 mill/uL (4.70-6.10); White Blood Cell (WBC) Count 4.8 thou/uL (4.8-10.8)
[2021-01-04 07:00] LABS: ALT (SGPT) 10 U/L (8-55); AST (SGOT) 16 U/L (5-34); Albumin 3.2 g/dL (3.5-5.0); Alkaline Phosphatase 63 U/L (40-110); Anion Gap 13 mmol/L (10-20); BUN (Urea Nitrogen) 4 mg/dL (8.9-20.6); Bilirubin, Total 0.4 mg/dL (0.2-1.2); Calc. Creatinine Clearance 224 mL/min (70-130); Calcium 8.4 mg/dL (7.8-10.44); Carbon Dioxide 21 mmol/L (22-29); Chloride 102 mmol/L (98-107); Globulin 4.9 g/dL (2.4-3.5); Glucose 93 mg/dL (70-105); Protein, Total 8.1 g/dL (6.0-8.3); Sodium 132 mmol/L (136-145)
[2021-01-04] MEDS ORDERED: Bisacodyl 10 MG SUPP PR PRN (07:24)
[2021-01-04] MEDS ORDERED: Polyethylene Glycol 3350 17 GM Packet PO SCH (09:00)
[2021-01-04] MEDS: Enoxaparin Sodium 40 MG/0.4 ML SYRINGE SC SCH (09:00)
[2021-01-04] MEDS: Famotidine 20 MG TAB PO SCH (09:00)
[2021-01-04] MEDS: Sodium Bicarbonate Tab 325 MG TAB PO SCH ×2 (09:00→14:04)
[2021-01-04 09:13] LABS: Vancomycin, Trough 16.2 ug/mL
[2021-01-04 09:14] LABS: Band 11 % (5-11); Eosinophils 2 % (0-10); Lymphocytes 24 % (21-51); MDiff Complete? YES; Metamyelocyte 1 % (0-0); Monocytes 21 % (0-10); Neutrophil 41 % (42-75); Platelet Morphology Comment Appears Adequate; RBC Morphology Normal
[2021-01-04 14:07] VITALS: BP 122/85; TEMP 99.9
== END 2021-01-04 14:11 | disposition home or self-care (01) | DRG 392 ==
LOC: ERS 02:16 → ERHOLD 05:03 → T4-A 16:07
PROVIDERS: ADMIT Internal Medicine; ATTEND Internal Medicine
DX: A08.4 Viral intestinal infection, unspecified (principal); B20 Human immunodeficiency virus [HIV] disease; C85.90 Non-Hodgkin lymphoma, unspecified, unspecified site; E22.2 Syndrome of inappropriate secretion of antidiuretic hormone; E87.2 Acidosis; R65.10 Systemic inflammatory response syndrome (SIRS) of non-infectious origin without acute organ dysfunction; F17.210 Nicotine dependence, cigarettes, uncomplicated; Z20.822 Contact with and (suspected) exposure to COVID-19; Z90.49 Acquired absence of other specified parts of digestive tract
CPT/HCPCS: 0240U; 36415; 71045; 72146; 72148; 74177; 80053; 80202; 81003; 81015; 83930; 83935; 85007; 85025; 85027; 87040; 87086; 87149; 96365; 96367; J0692; J0696; J1650; J3370; J3490; Q9967

== ENCOUNTER 2021-02-01 14:26 | Inpatient (IN) | payer SELFPAY ==
[2021-02-01 15:22] LABS: Hemoglobin 10.3 g/dL (14.0-18.0); Mean Corpuscular HGB CONC 32.9 g/dL (32.0-36.0); Mean Corpuscular Hemoglobin 27.6 pg (27.0-31.0); Mean Corpuscular Volume 83.9 fL (78.0-98.0); Mean Platelet Volume 9.1 fL (7.4-10.4); Platelet Count 210 thou/uL (130-400); RBC Distribution Width 15.8 % (11.5-14.5); Red Blood Cell (RBC) Count 3.72 mill/uL (4.70-6.10); White Blood Cell (WBC) Count 6.6 thou/uL (4.8-10.8)
[2021-02-01] MEDS ORDERED: Acetaminophen 500 MG TAB ONE (15:22)
[2021-02-01] MEDS ORDERED: Cefepime 2 GM VIAL ONE (15:22)
[2021-02-01 15:27] LABS: Actual Bicarbonate (HCO3v) 21 mEq/L (22-28); Analyzer IN Cardio ER; Base Excess 1.1 mEq/L (-2.0 to +3.0); Calcium, Ionized (venous) 0.99 mmol/L (1.16-1.32); Chloride (VBG) 100 mmol/L (98-106); Hemoglobin (Hb) 11.1 g/dL (13.2-17.3); Potassium (VBG) 3.88 mmol/L (3.70-5.30); Sodium 128.7 mmol/L (133-146); pH (venous) 7.62 (7.32-7.43)
[2021-02-01 15:42] LABS: ALT (SGPT) 9 U/L (8-55); AST (SGOT) 13 U/L (5-34); Albumin 3.3 g/dL (3.5-5.0); Alkaline Phosphatase 75 U/L (40-110); Anion Gap 13 mmol/L (10-20); BUN (Urea Nitrogen) 5 mg/dL (8.9-20.6); Bilirubin, Total 0.7 mg/dL (0.2-1.2); Calc. Creatinine Clearance 0 mL/min (70-130); Calcium 8.2 mg/dL (7.8-10.44); Carbon Dioxide 22 mmol/L (22-29); Chloride 98 mmol/L (98-107); Glucose 107 mg/dL (70-105); Lipase 11 U/L (8-78); Protein, Total 8.3 g/dL (6.0-8.3); Sodium 129 mmol/L (136-145)
[2021-02-01 15:43] LABS: Band 25 % (5-11); Lymphocytes 20 % (21-51); MDiff Complete? YES; Monocytes 6 % (0-10); Neutrophil 47 % (42-75); Reactive Lymphocytes 2 % (0-10)
[2021-02-01 18:49] LABS: Bilirubin Negative (Negative); Blood, Urine Negative (Negative); Clarity Clear (Clear); Glucose, Urine (Dipstick) Normal (Negative); Ketone, Urine Negative (Negative); Leukocyte Negative Leu/uL (Negative); Nitrite Negative (Negative); Protein, Urine (Dipstick) Negative (Neg-Trace); Specific Gravity, Urine 1.032 (1.002-1.036); Urobilinogen Normal mg/dL (Less than 2)
[2021-02-01] MEDS ORDERED: VANCOMYCIN 2 GRAM/400 ML BAG 2 GM in Premix Bag 1 BAG IVPB SCH (19:15)
[2021-02-01] MEDS ORDERED: Ondansetron ODT 4 MG TAB PO PRN (20:11)
[2021-02-01] MEDS ORDERED: Ondansetron PF 4 MG/2 ML Vial IVP PRN (20:11)
[2021-02-01] MEDS ORDERED: Morphine 2 MG/ML VIAL SLOW IVP PRN (20:15)
[2021-02-01 20:44] VITALS: BMI 32.3
[2021-02-01] MEDS: Sodium Chloride 0.9% 1,000 ML IV SCH (20:49)
[2021-02-01] MEDS: Morphine 4 MG/ML VIAL SLOW IVP PRN (20:50)
[2021-02-01] MEDS: Acetaminophen 325 MG TAB PO PRN (20:53)
[2021-02-01] MEDS ORDERED: Vancomycin HCl 1.5 GM in Sodium Chloride 0.9% 250 ML 300 ML IVPB SCH (21:00)
[2021-02-01 22:48] LABS: SARS-CoV-2 NAA Rapid Test Not Detected (NotDetected)
[2021-02-02] MEDS: VANCOMYCIN 1.75 GM/350 ML BAG 1.75 GM in Premix Bag 1 BAG IVPB SCH ×3 (03:55→20:53)
[2021-02-02] MEDS: HYDROcodone/Acetaminophen 5/325 mg Tablet PO PRN ×2 (05:02→12:45)
[2021-02-02] MEDS: Cefepime 2 GM in Sodium Chloride 0.9% 100 ML IVPB SCH ×2 (05:04→17:56)
[2021-02-02 06:40] LABS: Hemoglobin 9.4 g/dL (14.0-18.0); Mean Corpuscular HGB CONC 32.8 g/dL (32.0-36.0); Mean Corpuscular Hemoglobin 28.3 pg (27.0-31.0); Mean Corpuscular Volume 86.2 fL (78.0-98.0); Mean Platelet Volume 8.9 fL (7.4-10.4); Platelet Count 183 thou/uL (130-400); RBC Distribution Width 15.8 % (11.5-14.5); White Blood Cell (WBC) Count 5.7 thou/uL (4.8-10.8)
[2021-02-02 06:49] LABS: Anion Gap 13 mmol/L (10-20); BUN (Urea Nitrogen) 5 mg/dL (8.9-20.6); Calc. Creatinine Clearance 216 mL/min (70-130); Calcium 8.1 mg/dL (7.8-10.44); Carbon Dioxide 19 mmol/L (22-29); Chloride 102 mmol/L (98-107); Glucose 81 mg/dL (70-105); Sodium 130 mmol/L (136-145)
[2021-02-02] MEDS: Sodium Chloride 0.9% 1,000 ML IV SCH ×2 (06:55→17:57)
[2021-02-02 07:55] LABS: Band 6 % (5-11); Lymphocytes 12 % (21-51); MDiff Complete? YES; Monocytes 19 % (0-10); Neutrophil 63 % (42-75); Platelet Morphology Comment Appears Adequate; RBC Morphology Normal
[2021-02-02] MEDS: Acetaminophen 325 MG TAB PO PRN ×2 (08:14→14:51)
[2021-02-02 10:29] LABS: CRP (Inflammatory) 21.4 mg/dL (= or < 0.5); Uric Acid 4.5 mg/dL (3.5-7.2)
[2021-02-02] MEDS ORDERED: Fentanyl 100 MCG/2 ML VIAL ONE (11:21)
[2021-02-02] MEDS ORDERED: Midazolam HCl 2 mg/2 ml Vial ONE (11:21)
[2021-02-02] MEDS ORDERED: Sodium Bicarbonate 2.5 MEQ/5 ML VIAL ONE (11:21)
[2021-02-02] MEDS ORDERED: DOVATO PO SCH (16:30)
[2021-02-02] MEDS: Ibuprofen 600 MG TAB PO PRN (18:30)
[2021-02-02] MEDS: Morphine 4 MG/ML VIAL SLOW IVP PRN (19:26)
[2021-02-02 19:51] LABS: Vancomycin, Trough 13.4 ug/mL
[2021-02-02 19:53] LABS: Iron 13 ug/dL (65-175); Iron Binding Capacity, Total 134 mcg/dL (261-462)
[2021-02-02 20:19] LABS: Ferritin 1600.33 ng/mL (22-322)
[2021-02-03] MEDS: Morphine 4 MG/ML VIAL SLOW IVP PRN ×4 (02:52→22:22)
[2021-02-03] MEDS: Sodium Chloride 0.9% 1,000 ML IV SCH ×3 (02:52→18:10)
[2021-02-03] MEDS: VANCOMYCIN 1.75 GM/350 ML BAG 1.75 GM in Premix Bag 1 BAG IVPB SCH ×2 (04:24→13:50)
[2021-02-03] MEDS: Acetaminophen 325 MG TAB PO PRN ×2 (06:02→16:43)
[2021-02-03 06:24] LABS: INR-International Normal Ratio 1.3; PTT 39.9 sec (22.9-36.1); Prothrombin Time 16.3 sec (12.0-14.7)
[2021-02-03 06:36] LABS: Anion Gap 13 mmol/L (10-20); BUN (Urea Nitrogen) 5 mg/dL (8.9-20.6); Calc. Creatinine Clearance 205 mL/min (70-130); Calcium 8.1 mg/dL (7.8-10.44); Carbon Dioxide 22 mmol/L (22-29); Chloride 102 mmol/L (98-107); Glucose 81 mg/dL (70-105); Potassium 4.3 mmol/L (3.5-5.1); Sodium 133 mmol/L (136-145)
[2021-02-03 06:38] LABS: Band 1 % (5-11); Hemoglobin 9.8 g/dL (14.0-18.0); Lymphocytes 12 % (21-51); MDiff Complete? YES; Mean Corpuscular HGB CONC 31.1 g/dL (32.0-36.0); Mean Corpuscular Hemoglobin 26.6 pg (27.0-31.0); Mean Corpuscular Volume 85.6 fL (78.0-98.0); Mean Platelet Volume 9.5 fL (7.4-10.4); Metamyelocyte 4 % (0-0); Monocytes 5 % (0-10); Neutrophil 78 % (42-75); Platelet Count 175 thou/uL (130-400); Platelet Morphology Comment Appears Adequate; RBC Distribution Width 15.6 % (11.5-14.5); Red Blood Cell (RBC) Count 3.66 mill/uL (4.70-6.10); White Blood Cell (WBC) Count 5.4 thou/uL (4.8-10.8)
[2021-02-03] MEDS: Cefepime 2 GM in Sodium Chloride 0.9% 100 ML IVPB SCH (07:29)
[2021-02-03] MEDS ORDERED: Cyanocobalamin 1000 MCG/ML VIAL IM SCH (09:00)
[2021-02-03] MEDS: Cyanocobalamin (Vitamin B-12) 1,000 MCG TAB PO SCH (09:05)
[2021-02-03] MEDS: DOVATO PO SCH (09:16)
[2021-02-03] MEDS: HYDROcodone/Acetaminophen 5/325 mg Tablet PO PRN ×2 (09:17→18:10)
[2021-02-03] MEDS ORDERED: Lidocaine 1% w/Epinephrine 1:100K 20 ML VIAL ONE (10:43)
[2021-02-03] MEDS ORDERED: Bupivacaine PF 0.5% 30 ML VIAL ONE (10:43)
[2021-02-03] MEDS ORDERED: Fentanyl 100 MCG/2 ML VIAL ONE (11:51)
[2021-02-03] MEDS ORDERED: PROPOFOL 200 MG/20 ML VIAL ONE (12:13)
[2021-02-03 19:42] LABS: Vancomycin, Trough 11.7 ug/mL
[2021-02-03] MEDS: Ibuprofen 600 MG TAB PO PRN (23:23)
[2021-02-04] MEDS ORDERED: Docusate 100 MG CAP PO PRN (04:46)
[2021-02-04 06:28] LABS: Anion Gap 17 mmol/L (10-20); BUN (Urea Nitrogen) 5 mg/dL (8.9-20.6); Calc. Creatinine Clearance 219 mL/min (70-130); Calcium 8.1 mg/dL (7.8-10.44); Carbon Dioxide 19 mmol/L (22-29); Chloride 103 mmol/L (98-107); Glucose 100 mg/dL (70-105); Potassium 4.5 mmol/L (3.5-5.1); Sodium 134 mmol/L (136-145)
[2021-02-04 06:30] LABS: Band 27 % (5-11); Hemoglobin 9.7 g/dL (14.0-18.0); Hypochromia SLIGHT = 6-15 cells (100X) (0-5/hpf); Lymphocytes 14 % (21-51); MDiff Complete? YES; Mean Corpuscular HGB CONC 32.1 g/dL (32.0-36.0); Mean Corpuscular Hemoglobin 27.6 pg (27.0-31.0); Mean Corpuscular Volume 86.1 fL (78.0-98.0); Mean Platelet Volume 9.3 fL (7.4-10.4); Metamyelocyte 2 % (0-0); Monocytes 10 % (0-10); Neutrophil 47 % (42-75); Platelet Count 168 thou/uL (130-400); Platelet Morphology Comment Appears Adequate; RBC Distribution Width 15.8 % (11.5-14.5); Red Blood Cell (RBC) Count 3.52 mill/uL (4.70-6.10); White Blood Cell (WBC) Count 5.9 thou/uL (4.8-10.8)
[2021-02-04] MEDS: Morphine 4 MG/ML VIAL SLOW IVP PRN (07:14)
[2021-02-04] MEDS: HYDROcodone/Acetaminophen 5/325 mg Tablet PO PRN ×2 (09:23→14:46)
[2021-02-04] MEDS: Sodium Chloride 0.9% 1,000 ML IV SCH (09:28)
[2021-02-04] MEDS: Cyanocobalamin (Vitamin B-12) 1,000 MCG TAB PO SCH (09:28)
[2021-02-04] MEDS: DOVATO PO SCH (09:29)
[2021-02-04] MEDS: Ibuprofen 600 MG TAB PO PRN (10:28)
[2021-02-04 11:14] LABS: %CD4 (Helper/Inducer) 17.8 % (30.8-58.5); Absolute CD4 125 /uL (359-1519); Lymphocytes/Gated Cell Count 0.7 x10E3/uL (0.7-3.1); Total Lymphocyte 14 % (Not Estab.); WBC Total Count 5.1 x10E3/uL (3.4-10.8)
[2021-02-04 12:04] VITALS: BP 132/86; TEMP 99.2
== END 2021-02-04 15:32 | disposition home or self-care (01) | DRG 841 ==
LOC: ERS 14:26 → T4-B 18:49
PROVIDERS: ADMIT Internal Medicine; ATTEND Internal Medicine
PROC: 07DR3ZX Extraction of Iliac Bone Marrow, Percutaneous Approach, Diagnostic (ICD-10-PCS; principal; 2021-02-02)
PROC: 0JH63WZ Insertion of Totally Implantable Vascular Access Device into Chest Subcutaneous Tissue and Fascia, Percutaneous Approach (ICD-10-PCS; 2021-02-03)
PROC: 02HV33Z Insertion of Infusion Device into Superior Vena Cava, Percutaneous Approach (ICD-10-PCS; 2021-02-03)
DX: C81.93 Hodgkin lymphoma, unspecified, intra-abdominal lymph nodes (principal); B20 Human immunodeficiency virus [HIV] disease; E87.1 Hypo-osmolality and hyponatremia; Z20.822 Contact with and (suspected) exposure to COVID-19; F17.210 Nicotine dependence, cigarettes, uncomplicated; Z90.49 Acquired absence of other specified parts of digestive tract; Z79.899 Other long term (current) drug therapy
CPT/HCPCS: 20225; 36415; 71045; 71275; 74177; 77002; 80048; 80053; 80202; 81003; 82607; 82728; 82746; 82805; 83540; 83550; 83605; 83615; 83690; 83880; 84484; 84550; 85025; 85048; 85097; 85610; 85730; 86140; 86361; 87040; 87086; 87536; 88184; 88185; 88237; 88305; 88311; 88313; 88342; 93005; 93306; 96365; 96366; 96375; C1788; J0692; J1642; J2250; J2270; J2704; J3010; J3370; J3490; Q9967; S0020; U0002; U0005